=== PATIENT | female | born 1955 | race Caucasian/White ===

== ENCOUNTER 2018-10-20 11:12 | Emergency (ER) | payer OTHER ==
[~2018-10-20] VITALS: Ht 152.4 cm; Wt 81.7 kg
[2018-10-20 11:17] VITALS: Ht 152.4 cm; Wt 81.7 kg
[2018-10-20] MEDS ORDERED: morphine 4 MG/ML VIAL IV STA (11:43)
[2018-10-20] MEDS ORDERED: SOD CHLORIDE 0.9% 1,000 ML IV STA (11:43)
[2018-10-20] MEDS ORDERED: ONDANSETRON 4 MG INJ IV STA (11:43)
[2018-10-20] MEDS ORDERED: CIPR500T4 PO (14:00)
[2018-10-20] MEDS ORDERED: CIPROFLOXACIN 500 MG TAB PO ONE (14:00)
[2018-10-20] MEDS ORDERED: IBUP-1542 PO (14:00)
[2018-10-20] MEDS ORDERED: metroNIDAZOLE 500 MG TAB PO ONE (14:00)
[2018-10-20] MEDS ORDERED: METR500T PO (14:00)
--- NOTE | 2018-10-20 14:06 | ERD ---
ER Documentation Chief Complaint Chief Complaint left sided flank pain/ab pain HPI Patient is a 63-year-old female with diverticulosis who presents with abdominal pain and flank pain. The patient has bilateral lower back pain and lower abdominal pain which started yesterday. It left worse than right. The patient said that it started yesterday afternoon and has been constant. It is worse with laying down or sitting. She denies vomiting or diarrhea. She has no fevers. She has had no treatment as of yet. She has no pain with urination. The patient is a plan for colonoscopy on October 27 of this year at [facility]. Upon review of old medical records this is the patient's first visit to the emergency department. She does not remember the name of her primary doctor. ROS All systems reviewed and are negative except as per history of present illness. Medications Home Meds Active Scripts Ibuprofen* (Motrin*) 600 Mg Tab, 600 MG PO Q6H PRN for PAIN AND OR ELEVATED TEMP, #30 TAB Prov:RONNELL GONZALEZ MD 10/20/18 Metronidazole* (Flagyl*) 500 Mg Tablet, 500 MG PO TID for 7 Days, TAB Prov:RONNELL GONZALEZ MD 10/20/18 Ciprofloxacin Hcl* (Ciprofloxacin Hcl*) 500 Mg Tablet, 500 MG PO BID for 7 Days, TAB Prov:RONNELL GONZALEZ MD 10/20/18 Allergies Allergies: Coded Allergies: No Known Allergy (Unverified , 10/20/18) PMhx/Soc History of Surgery: No Anesthesia Reaction: No Hx Neurological Disorder: No Hx Respiratory Disorders: No Hx Cardiac Disorders: No Hx Psychiatric Problems: No Hx Miscellaneous Medical Probl: Yes (DIVERTICULITIS) Hx Alcohol Use: No Hx Substance Use: No Hx Tobacco Use: No Smoking Status: Never smoker FmHx Family History: No diabetes Physical Exam Vitals Vital Signs Date Temp Pulse Resp B/P (MAP) Pulse Ox O2 O2 Flow FiO2 Time Delivery Rate 10/20/18 98.7 88 20 191/88 97 11:17 (122) Physical Exam Const: No acute distress Head: Atraumatic Eyes: Normal Conjunctiva ENT: Normal External Ears, Nose and Mouth. Neck: Full range of motion. No meningismus. Resp: Clear to auscultation bilaterally Cardio: Regular rate and rhythm, no murmurs Abd: Soft, left lower quadrant tenderness to palpation without rebound or guarding Skin: No petechiae or rashes Back: No midline or flank tenderness Ext: No cyanosis, or edema Neur: Awake and alert Psych: Normal Mood and Affect Result Diagram: 10/20/18 1157 10/20/18 1157 Results 24 hrs Laboratory Tests Test 10/20/18 11:57 White Blood Count 5.7 10^3/ul Red Blood Count 4.50 10^6/ul Hemoglobin 13.3 g/dl Hematocrit 39.9 % Mean Corpuscular Volume 88.7 fl Mean Corpuscular Hemoglobin 29.6 pg Mean Corpuscular Hemoglobin Concent 33.3 g/dl Red Cell Distribution Width 12.7 % Platelet Count 238 10^3/UL Mean Platelet Volume 9.2 fl Immature Granulocytes % 0.300 % Neutrophils % 67.3 % Lymphocytes % 24.0 % Monocytes % 7.1 % Eosinophils % 1.0 % Basophils % 0.3 % Nucleated Red Blood Cells % 0.0 /100WBC Immature Granulocytes # 0.020 10^3/ul Neutrophils # 3.9 10^3/ul Lymphocytes # 1.4 10^3/ul Monocytes # 0.4 10^3/ul Eosinophils # 0.1 10^3/ul Basophils # 0.0 10^3/ul Nucleated Red Blood Cells # 0.0 10^3/ul Urine Color YELLOW Urine Clarity CLEAR Urine pH 5.0 Urine Specific [place] 1.019 Urine Ketones 1+ mg/dL Urine Nitrite NEGATIVE mg/dL Urine Bilirubin NEGATIVE mg/dL Urine Urobilinogen NEGATIVE mg/dL Urine Leukocyte Esterase TRACE Rubens/ul Urine Microscopic RBC 1 /HPF Urine Microscopic WBC 5 /HPF Urine Squamous Epithelial Cells FEW /HPF Urine Mucus FEW /HPF Urine Hemoglobin 1+ mg/dL Urine Glucose NEGATIVE mg/dL Urine Total Protein NEGATIVE mg/dl Sodium Level 141 mmol/L Potassium Level 4.0 mmol/L Chloride Level 105 mmol/L Carbon Dioxide Level 26 mmol/L Anion Gap 10 Blood Urea Nitrogen 13 mg/dl Creatinine 0.62 mg/dl Est Glomerular Filtrat Rate mL/min > 60 mL/min Glucose Level 97 mg/dl Calcium Level 9.8 mg/dl Total Bilirubin 0.5 mg/dl Direct Bilirubin 0.00 mg/dl Indirect Bilirubin 0.5 mg/dl Aspartate Amino Transf (AST/SGOT) 23 IU/L Alanine Aminotransferase (ALT/SGPT) 17 IU/L Alkaline Phosphatase 84 IU/L Total Protein 8.2 g/dl Albumin 4.5 g/dl Globulin 3.70 g/dl Albumin/Globulin Ratio 1.21 Lipase 61 U/L Current Medications Medications Dose Sig/Pedro Start Time Status Last (Trade) Ordered Route PRN Stop Time Admin Dose Reason Admin Sodium 1,000 ml @ Q1H STAT 10/20/18 DC 10/20/18 Chloride 1,000 mls/hr IV 11:43 12:02 10/20/18 12:42 Morphine 4 mg ONCE STAT 10/20/18 DC 10/20/18 Sulfate IV 11:43 12:02 (morphine) 10/20/18 11:44 Ondansetron 4 mg ONCE STAT 10/20/18 DC 10/20/18 HCl (Zofran IV 11:43 12:02 Inj) 10/20/18 11:44 500 mg ONCE ONCE 10/20/18 DC Ciprofloxacin PO 14:00 (Cipro) 10/20/18 14:01 500 mg ONCE ONCE 10/20/18 DC Metronidazole PO 14:00 (Flagyl) 10/20/18 14:01 Procedures/MDM CT scan shows possible mild diverticulitis per radiology. Patient is a 63-year-old female who presents with left lower quadrant pain. The patient has basically normal laboratory studies and no urine infection. The patient was found to have mild diverticulitis on CT scan. The patient does not appear to have sepsis or other serious bacterial infection at this time. I believe outpatient management is appropriate. There is no sign of abscess or free air. The patient will be given Cipro, Flagyl, and ibuprofen. The patient can return for any worsening symptoms. Departure Diagnosis: Primary Impression: Diverticulitis Additional Impression: Flank pain Condition: Fair Patient Instructions: Diverticulitis Referrals: Your doctor Additional Instructions: Llame al doctor MAANA y shanika tammy FELIX PARA DENTRO DE 1-2 HENDERSON.Dgale a la secretaria que nosotros le instruimos hacer esta felix.Avise o llame si palmer condicin se empeora antes de la felix. Regresa aqui si peor o no mejor. RONNELL GONZALEZ MD Oct 20, 2018 14:06
[2018-10-20 14:08] VITALS: BP 136/64; PULSE 59; RESP 16
== END 2018-10-20 14:53 | disposition home or self-care (01) ==
LOC: E/R 11:12
DX: K57.30 Diverticulosis of large intestine without perforation or abscess without bleeding (principal)
CPT/HCPCS: 36415; 74176; 80053; 81001; 83690; 85025; 96361; 96374; 96375; J2270; J2405; J7030; Z7502; Z7610

== ENCOUNTER 2018-10-27 06:44 | Day surgery (SDC) | payer OTHER ==
[~2018-10-27] VITALS: Ht 154.9 cm; Wt 80.2 kg
[~2018-10-27 06:44] MED LIST: CIPR500T4 PO; IBUP-1542 PO; METR500T PO
[2018-10-27 07:47] VITALS: Ht 154.9 cm; Wt 80.2 kg
[2018-10-27 08:56] VITALS: BP 139/68; PULSE 99; RESP 18
[2018-10-27] MEDS ORDERED: MIDAZOLAM 1 MG/ML 2 ML INJ ONE ×2 (09:17)
[2018-10-27] MEDS ORDERED: FENTAnyl 50 MCG/ML VIAL ONE (09:17)
[2018-10-27 09:53] VITALS: BP 108/57; RESP 20
== END 2018-10-27 10:58 | disposition home or self-care (01) ==
LOC: GIL 06:44
PROVIDERS: ATTEND Internal Medicine Gastroenterology
DX: Z12.11 Encounter for screening for malignant neoplasm of colon (principal); K64.8 Other hemorrhoids
CPT/HCPCS: 45378; J2250; J3010